=== PATIENT | female | born 1975 | race Caucasian/White ===

== ENCOUNTER 2021-05-19 12:48 | Outpatient (CLI) | payer MEDICAID | END 2021-05-19 12:49 | disposition home or self-care (01) | LOC: ULT 12:48 | PROVIDERS: ATTEND Family Medicine | DX: R10.2 Pelvic and perineal pain (principal); N85.2 Hypertrophy of uterus; D25.9 Leiomyoma of uterus, unspecified | CPT/HCPCS: 76856 ==

== ENCOUNTER 2021-06-15 11:01 | Outpatient (CLI) | payer BC | END 2021-06-15 11:02 | disposition home or self-care (01) | LOC: BICULT 11:01 | PROVIDERS: ATTEND Family Medicine | DX: R79.89 Other specified abnormal findings of blood chemistry (principal) | CPT/HCPCS: 76700 ==